=== PATIENT | male | born 1940 | race Caucasian/White ===

== ENCOUNTER → 2024-03-27 14:09 | Outpatient (REF) | payer MEDICARE, SELFPAY | LOC: DHVS 14:09 | PROVIDERS: ATTENDING PHYSICIAN Surgery Vascular Surgery | DX: I65.23 Occlusion and stenosis of bilateral carotid arteries (principal) | CPT/HCPCS: 93880 ==

== ENCOUNTER → 2024-10-15 13:53 | Outpatient (REF) | payer MEDICARE, SELFPAY | LOC: RAD 13:53 | PROVIDERS: ATTENDING PHYSICIAN Physician Assistant; FAMILY PHYSICIAN Family Medicine | DX: I65.23 Occlusion and stenosis of bilateral carotid arteries (principal) | CPT/HCPCS: 93880 ==

== ENCOUNTER 2024-11-01 01:12 | Inpatient (IN) | payer MEDICARE, SELFPAY ==
[2024-10-31 19:19] VITALS: BP 121/58
[2024-10-31 19:39] LABS: % Eosinophils 0.4 % (0-6); % Immature Granulocytes 0.3 % (0-0.5); % Lymphocytes 6.3 % (20.5-51.1); % Monocytes 9.9 % (1.7-9.3); % Neutrophils 83.1 % (42.2-75.2); Absolute Lymphocytes 0.5 10^3/uL (1.2-3.4); Absolute Monocytes 0.7 10^3/uL (0.1-0.6); Hematocrit 25.2 % (39.0-52.0); Hemoglobin 8.7 g/dL (13.0-18.0); Mean Corp Hgb Conc. 34.5 g/dL (33.0-37.0); Mean Corpuscular Hgb 29.7 pg (27.0-31.0); Nucleated Red Blood Cells % 0 % (-); Platelet Count 121 10^3/uL (130-400); Red Blood Cell Count 2.93 10^6/uL (4.70-6.10); Red Cell Dist. Width 16.6 % (11.5-14.5); White Blood Cell Count 7.2 10^3/uL (4.8-10.8)
[2024-10-31 19:47] LABS: Lactic Acid 1.7 mmol/L (0.7-2.0)
[2024-10-31 20:01] LABS: ALT (SGPT) 19 U/L (0-50); AST (SGOT) 29 U/L (17-59); Albumin 3.9 g/dl (3.5-5.0); Alkaline Phosphatase 84 U/L (38-126); Blood Urea Nitrogen 110 mg/dl (9-20); Calcium 8.7 mg/dl (8.4-10.2); Carbon Dioxide 19 mmol/L (22-30); Chloride 94 mmol/L (98-107); Glucose 226 mg/dl (70-99); Potassium 4.5 mmol/L (3.5-5.1); Sodium 128 mmol/L (135-145); Total Bilirubin 0.6 mg/dl (0.2-1.3); Total Protein 6.3 g/dl (6.3-8.2); eGFR 6.31
[2024-10-31 21:16] VITALS: BP 127/82
--- NOTE | 2024-10-31 21:26 | ED.GENMED ---
History of Present Illness
General
Chief Complaint: Male Genito-Urinary Symptoms
Source: patient and family
Exam Limitations: none
Time Seen by Provider: 10/31/24 21:13
History of Present Illness
History of Present Illness:
84yoM with a history of hypertension, hyperlipidemia, and prior TIAs presenting with his and daughter for evaluation of UTI symptoms. He initially started with dysuria about a week ago. He was seen at urgent care and started on an antibiotic,
patient is unsure of the name. He was again seen at urgent care and then by his PCP due to persistent symptoms. He was started on Bactrim 3 days ago by his PCP which she has been taking. Patient is here with new abdominal distention which she
noticed about 2 days ago. He is also having some fatigue and decreased appetite. He denies any fevers, chills, vomiting.
Past History
Past History
ED Past Medical History: CVA and HTN
ED Past Surgical History: None
Social History
Tobacco: Non-smoker
Alcohol: None
Drug: None
Personal:
Living: with family
Phy Exam
General Physical Exam
General Presentation: no apparent distress
General age: appears stated age
General Skin: warm and dry
General Habitus: normal and elderly
General Mental: alert
ENT Exam
ENT Exam: normocephalic
Cardiovascular Exam
Cardiovascular Exam: regular rate/rhythm
Pulmonary Exam
Pulmonary Exam: no respiratory distress
Gastrointestinal Exam
Gastrointestinal Exam: soft and other (Lower abdomen markedly distended with palpable bladder)
[place] Coma Scale
Eye Opening: Spontaneous
Verbal Response: Oriented
Motor Response: Obeys Commands
GCS Total Score: 15
Skin Exam
Skin Exam: normal color and warm/dry
Psychiatric Exam
Psychiatric Exam: normal mood/affect
Course
Orders/Labs/Results
Orders:
Orders
10/31/24 19:28
Comprehensive Metabolic Panel Urgent
10/31/24 19:29
Complete Blood Count/With Diff Urgent
10/31/24 19:30
Lactic Acid Urgent
10/31/24 21:24
Bladder Scan- Treatment ONCE
Ortiz Placement- Treatment ONCE
Reason for insertion: Acute Retention
0.9% Sodium Chloride 1000 ml [Nss] 1,000 ml IV BOLUS
10/31/24 21:25
CT Abd/pel Without Iv Or Oral Urgent
Comment:
Reason For Exam: Difficulty urinating, REZA
10/31/24 21:34
Lidocaine 2% [Lidocaine Uro-Jet 2%] 1 syringe .ROUTE .[employer] ONE
10/31/24 22:13
Urine Culture Reflexed from UA [Urinalysis Reflex To Culture] Urgent
Date Specimen was Collected: 10/31/24
Time Specimen was Collected: 19:22
Urine Microscopic Reflex Cult Urgent
10/31/24 23:44
CefTRIAXone [Rocephin] 1,000 mg IV NOW STA
10/31/24 23:46
Sterile Water [Sterile Water For Injection] 10 ml .ROUTE .[employer] ONE
10/31/24 23:56
Ortiz Catheter [Catheter- Indwelling] As Directed
Reason for insertion: Acute Retention
Size: 16
Comment: difficulrt ortiz do not remove hand irrigate prn clots
Assess insertion reason daily.Remove if no longer applicable: No
Discontinue Date/Time: 11/03/24 0600
May discontinue catheter when patient ambulating: No
Comment: KEEP ORTIZ
11/01/24 00:13
Acetaminophen [Tylenol] 650 mg PO NOW STA
11/01/24 00:52
Admit/Transfer Patient As Directed
Co-Sign Provider:
Level of Care: Inpatient admission
Assign to:: IMU- Intermediate Care
Physician / Group: Kirill
Diagnosis: Urinary Retention, REZA
Reason for Hospitalization: Urinary Retention, REZA
Expected length of stay greater than two midnights?: Yes
ELOS- Estimated Length of Stay in days: 4
I certify the patient meets the requirements for IP care: Yes
PRN Pain Medication Management As Directed
May give lesser potent ordered pain med per pt: Yes
preference::
Protocol:: Medication orders for pain may be administered in a
manner that supports deferring to patient preference
when the pt is:
- Requesting an ordered lesser potent pain medication.
Least to most potent pain medications are defined
as: acetaminophen < NSAID < tramadol < opioids
(morphine, oxycodone, hydromorphone).
- Requesting a lesser dose of the same medication IF
ORDERED.
- Requesting a less intrusive route of administration
if both routes are prescribed by the provider (PO <
IV).
11/01/24 00:54
Code Status As Directed
Resuscitation Status: Full Code
11/01/24 05:08
Basic Metabolic Panel IN AM
Glycohemoglobin (HgbA1c) IN AM
Magnesium IN AM
11/01/24 05:29
0.9% Sodium Chloride 1000 ml [Nss] 1,000 ml IV 80 mls/hr
Acetaminophen [Tylenol] 650 mg PO Q4HPRN PRN
Dextrose 50%-Water [Dextrose 50% Syringe] 12.5 grams IV [id number] PRN
Glucagon [GlucaGen] 1 mg IM PRN PRN
Polyethylene Glycol Powder [Miralax] 17 grams PO DAILY PRN
11/01/24 05:29
Consult Notification Routine
Specialty to Notify: Nephrology
Date consulting provider notified: 11/01/24
Time consulting provider notified: 07:30
Notified:: Provider
NEPHROLOGY CONSULT Routine
Consulting Provider: Yonatan Miller
Was physician already notified: No
Reason for consult: REZA, Urinary Retention
UROLOGY CONSULT Routine
Consulting Provider: Jhon Heller
Was physician already notified: Yes
Comment: Urinary Retention
Activity As Directed
Activity Level: Ambulate
With Assistance
Bedside Glucose Monitoring As Directed
Frequency: AC&HS
Additional Instructions:: Change to q6h if pt on TPN, tube feeding or not eating
EKG with chest pain [ECG as needed] As Directed
ECG as needed for:: Chest Pain
I/O [Intake/ Output] As Directed
Frequency: Per unit guidelines
Pneumatic Compression Sleeves As Directed
Type: Knee high
Records Request [Obtain Records] As Directed
Dates of Information to be Released: Most Recent
Type of Information Requested: Entire Record
Obtain Records from: [facility]
Vital Signs As Directed
Frequency: Per unit guidelines
Weight As Directed
Frequency: Daily
Oxygen Therapy [O2 Therapy] [RESP] Routine
Titrate/Wean O2 to maintain O2 sat greater than (%): 94
DX Deep Vein Thrombosis Video Routine
11/01/24 Breakfast
NPO
Allow oral meds: Yes
Allow clear liquids: Sips of Clears
11/01/24 07:30
Insulin Aspart Corrective Low [Novolog Flexpen-Low Resistance] See Protocol SC AC
11/01/24 08:00
Metoprolol [Lopressor] 50 mg PO BID
11/01/24 09:33
Complete Blood Count/No Diff IN AM
TSH Reflex To Free T4 Routine
11/01/24 22:00
Sennosides [Senokot] 17.2 mg PO HS
11/02/24 00:01
CefTRIAXone [Rocephin] 1,000 mg IV Q24H
Abnormal Lab Results
10/31/24 10/31/24 10/31/24
19:28 19:29 22:13
RBC 2.93 L 10^6/uL
(4.70-6.10)
Hgb 8.7 L g/dL
(13.0-18.0)
Hct 25.2 L %
(39.0-52.0)
RDW 16.6 H %
(11.5-14.5)
Plt Count 121 L 10^3/uL
(130-400)
MPV 11.0 H fL
(7.4-10.4)
Absolute Lymphs (auto) 0.5 L 10^3/uL
(1.2-3.4)
Absolute Monos (auto) 0.7 H 10^3/uL
(0.1-0.6)
Neutrophils % 83.1 H %
(42.2-75.2)
Lymphocytes % 6.3 L %
(20.5-51.1)
Monocytes % 9.9 H %
(1.7-9.3)
Sodium 128 L mmol/L
(135-145)
Chloride 94 L mmol/L
(98-107)
Carbon Dioxide 19 L mmol/L
(22-30)
BUN 110 H* mg/dl
(9-20)
Creatinine 7.8 H* mg/dL
(0.7-1.3)
Glucose 226 H mg/dl
(70-99)
Ur Occult Blood Reflex 1+ A
(Negative)
Urine Bilirubin 1+ A
(Negative)
Leukocyte Esterase Rfl Trace A
(Negative)
Urine RBC 16-20 A /HPF
(0-2)
Urine Bacteria (Reflex) Few A
(Negative)
Urine Yeast Few A
(Negative)
Urine Glucose 1+ A
(Negative)
10/31/24 19:29
10/31/24 19:28
Vital Signs
Initial and Last Documented VS:
Initial Vital Signs
Temp Pulse Resp BP Pulse Ox
98.7 F 72 18 121/58 98
10/31/24 19:19 10/31/24 19:19 10/31/24 19:19 10/31/24 19:19 10/31/24 19:19
Last Documented Vital Signs
Temp Pulse Resp BP Pulse Ox
97.6 F 63 12 118/48 97
11/01/24 07:05 11/01/24 06:00 11/01/24 06:00 11/01/24 06:00 11/01/24 07:55
MDM/Problems Addressed
Differential Diagnosis Includes:
84yoM here with difficulty urinating x 1 week. Has been treated at urgent care and by his PCP for a UTI. Currently on Bactrim. C/o new abdominal distention x 2 days. Family states he has been very fatigued. VSS. He is non-toxic appearing. Lower
abdomen is markedly distended on exam. Differential diagnosis includes but is not limited to: urinary retention, BPH, REZA, sepsis
Initial ED plan: Labs obtained in triage and creatinine is 7.8 which is new. Sodium 128. Bladder scan obtained during exam which shows about 1400cc of urine. Ortiz catheter ordered, IV fluid bolus, and CT abdomen without contrast.
*Critical Care Note
Total Time (30-74mins, 75-104mins- exclusive of procedures): Not Applicable
Update Note
Update Note:
I was called to bedside as nursing staff was unable to place Ortiz catheter. I also attempted catheter placement. Significant resistance noted about 1cm from meatus, presumably a urethral stricture. We were to traverse the stricture with an 8F and a
10F catheter but catheters were too short. We were able to do a straight cath with some urine drainage when pressure applied to the lower abdomen. Urology called for assistance.
Dr. Heller ultimately came to bedside and was able to dilate the stricture to place a 16F Ortiz. Gross hematuria noted and urology recommending no DVT prophylaxis/anticoagulants due to risk of clotting. Dose of IV Rocephin ordered for prophylaxis
in setting of manipulation although no overt evidence of infection on urinalysis. Patient admitted for further management.
ED Attending Note
-
Portions of this chart may have been created with voice recognition software.� Occasional wrong word or��sound alike� substitutions may have occurred due to the inherent limitations of voice recognition software.
Discharge Plan
Departure
Patient Disposition: Admit
Date of Disposition: 10/31/24
Time of Disposition: 23:47
Presentation/result/management discussed w/ accepting MD/DO: Hospitalist
Discharge Problem:
Acute renal failure, Acute urinary retention, Urethral stricture
Interventions
Interventions:
*Risk Screen - Suicide Last Done: 10/31/24 22:20
*General Assessment Last Done: 10/31/24 19:19
*Neglect/Abuse Screening Last Done: 10/31/24 22:20
ED- Fall Risk Assessment Last Done: 10/31/24 22:20
*ED COVID-19 Vaccine History Last Done: 10/31/24 22:16
*Nursing Disposition Last Done: 11/01/24 05:29
ED-Male Genitourinary Assessment Last Done: 10/31/24 22:20
Discharge Date and Time
Discharge Date/Time: 11/01/24 05:29
[2024-10-31 22:00] VITALS: BP 117/62
[2024-10-31 22:14] VITALS: BMI 25.0
--- NOTE | 2024-10-31 22:15 | EDRN ---
A Mckinley was attempted, unable to pass the catheter, myself and 2 other nurses attempted as well at the PA, a small 10 persian will pass however it is only a straight catheter, no balloon to leave in, slowly draining bladder and waiting on urology to
answer PA
[2024-10-31 22:21] LABS: Urine Albumin Trace (Neg - Trace); Urine Bilirubin 1+ (Negative); Urine Character Clear (Clear); Urine Color Amber; Urine Glucose 1+ (Negative); Urine Ketone Negative (Negative); Urine Leukocyte Trace (Negative); Urine Nitrite Negative (Negative); Urine Occult Blood 1+ (Negative); Urine Urobilinogen Negative (Neg - 1+)
[2024-10-31 22:32] LABS: Urine Squamous Cell 0-2 /LPF (Few); Urine Uric Acid Crystals Seen
[2024-10-31 22:33] LABS: Urine Bacteria Few (Negative); Urine Red Blood Cell 16-20 /HPF (0-2); Urine Yeast Few (Negative)
[2024-10-31 23:00] VITALS: BP 117/49
--- NOTE | 2024-10-31 23:47 | W.PN.URO.CBU ---
Today's Communication / Plan
-
no anticoagulants hand irrigate prn
Assessment / Plan
-
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
Diagnosis
-
Date of Service: October 31, 2024
-
Patient Diagnosis:ACUTE RENAL FAILURECREATININE 7.8 IN PT WITH DENSE URETHRAL STRICTURE AND 1.4 LITERS URINE IN BLADDER AND ON BACTRIM FOR POSSIBLE UTI DID NOT VOID WELLX 2 WEEKS
Post Op Day:
Subjective
-
CANNOT VOID CANNOT PLACE RODRIGUEZ
Objective
-
Vital Signs
Temp Pulse Resp BP Pulse Ox
98.2 F 68 11 117/49 95
10/31/24 22:14 10/31/24 23:00 10/31/24 23:00 10/31/24 23:00 10/31/24 23:00
Intake and Output
10/30/24 10/31/24 11/01/24
06:59 06:59 06:59
Output Total 1800 / 1800
Balance -1800 / -1800
Output:
Urine, Voided 1800 / 1800
Laboratory Results
10/31/24 19:29
10/31/24 19:28
Review of Systems
-
Constitutional: Fatigue
Abdomen/GI: Abdominal Pain
: Difficulty Voiding
Physical Exam
-
General - well developed, well nourished, no acute distress
Chest - clear bilaterally
Abdomen - soft, non-tender, positive bowel sounds, no CVAT, no incisional pain or distention
Genitalia - normal
Rectal - normal
Skin - warm & dry with no rash
Neuro - AOx3, no motor deficits
Extremities - no clubbing, no cyanosis, no edema
Care Review
Data Reviewed
Discussed with: Hospitalist, Nursing and Family
[2024-11-01] VITALS (17 sets, daily range): BP systolic 97–140; BP diastolic 39–68; BMI 24.0
[2024-11-01] MEDS: ROCEPHIN 1000 MG IV (00:06)
[2024-11-01] MEDS: NSS 1000 IV ×3 (00:07→19:58)
[2024-11-01] MEDS: TYLENOL 650 MG PO (00:20)
--- NOTE | 2024-11-01 00:56 | HPS.HSE ---
Family Physician
-
Family Physician: Richie Coronado
Chief Complaint
-
Inability to urinate
History of Present Illness
Patient is an 84y M with PMH significant for hypertension, remote CVA and h/o urinary retention who presents to ED complaining of inability to urinate. Patient states that he developed symptoms bout 2 weeks ago of inability to urinate with
significant burning when he strained to urinate. He was seen at Urgent Care one week ago and started on Bactrim at that time for presumed UTI. He was seen by his PCP and the course of Bactrim was extended as his symptoms had not improved.
Patient estimates that it has been about 2 weeks since he has had an actual episode of urination.
He also notes that he has not moved his bowels in quite some time - he cannot say when his last BM was.
This evening, patient presented to he ED with increasing abdominal distention and discomfort and continued inability to urinate.
Mckinley could not be easily placed in the ED and patient was seen by Urology for difficult Mckinley placement. He currently feels improved from initial arrival - though he continues to note some abdominal distention and discomfort.
Patient had a similar episode in April 2023. He was seen in the ED here and had a Mckinley placed at that time and was discharged.
He states that he developed bloody urine 1-2 days later and was admitted to [facility] 'for a while'.
He ultimately was able to have this Mckinley removed and he states that he has been able to urinate well with no catheter, etc for > 1 year.
Medical History
Past Medical History
Past Medical History: Reports Other
Additional Past Medical History:
ASCVD (Prior CVAs, Carotid Stenosis)
Hypertension
Myelodysplastic Syndrome
Thoracic Aortic Aneurysm
Past Surgical History: Reports Other
Additional Past Surgical History:
Vasectomy
Social History
Tobacco: Vaping ( Current every day use. Previous cigarette smoker.)
Alcohol: Occasional
Drug: None
Family History
Family History: Not pertinent
Allergies / Home Medications
Allergies reflects when Allergies were last updated in [employer].
Home Medications with original date entered in [employer]
Allergy/Medication List:
Allergies
Allergy/AdvReac Type Severity Reaction Status Date / Time
NKA - No Known Allergies Allergy Unknown Uncoded 10/31/24 19:19
Home Medications
amlodipine 5 mg tablet 5 mg PO DAILY 04/24/23
aspirin 81 mg chewable tablet 81 mg PO DAILY 04/24/23
enalapril maleate 10 mg tablet 10 mg PO DAILY 04/24/23
fexofenadine 180 mg tablet 180 mg PO BID 04/24/23
metoprolol tartrate 50 mg tablet 50 mg PO BID 04/24/23
simvastatin 20 mg tablet 20 mg PO HS 04/24/23
Review of Systems
-
History Source: Patient
A 12 point ROS was completed and negative except as noted: Yes
Constitutional: Denies Fever or Chills
Respiratory: Denies Cough or Trouble Breathing
Cardiac: Denies Chest Pain or Palpitations
Abdomen/GI: Reports Abdominal Pain and Constipated; Denies Nausea, Vomiting or Diarrhea
: Reports Dysuria and Difficulty Voiding; Denies Frequency, Flank Pain or Incontinence
Musculoskeletal: Denies Joint Pain or Edema
Neurological: Denies Dizzy or Headache
Psych: Denies Depression or Anxiety
Physical Exam
Vital Signs
Vital Signs
Temp Pulse Resp BP Pulse Ox
98.2 F 76 24 129/46 97
10/31/24 22:14 10/31/24 23:50 10/31/24 23:50 11/01/24 00:06 11/01/24 00:30
Physical Exam
General: Other (84y M in no acute distress.)
HEENT: Moist mucous membranes, PERRLA and Other (Poor dentition.)
Respiratory: Clear; No Wheezes, Rales or Rhonchi
Cardiac: S1/S2 and Regular Rhythm
GI: Other (Suprapubic fullness and mild tenderness. No rebound / guarding. Pos bowel sounds.)
Genito-urinary: Other (Mckinley in place draining grossly bloody urine.)
Musculoskeletal: No Clubbing, No Cyanosis and Other (Trace - 1+ pitting edema b/l feet.)
Neuro: AO x 3
Laboratory Results
-
10/31/24 19:29
10/31/24 19:28
Laboratory Results
Lactic Acid 1.7 mmol/L (0.7-2.0) 10/31/24 19:30
Total Bilirubin 0.6 mg/dl (0.2-1.3) 10/31/24 19:28
AST 29 U/L (17-59) 10/31/24 19:28
ALT 19 U/L (0-50) 10/31/24 19:28
Alkaline Phosphatase 84 U/L (38-126) 10/31/24 19:28
Impression/Plan
-
A/P: Patient is an 84y M with PMH significant for hypertension, prior CVA(s) and BPH who presents to ED complaining of difficulty urinating.
Urinary Retention
Urethral Stricture
- Admit for further evaluation and treatment.
- Mckinley drained of 1400cc in the ED by Urology.
- Urethra dilated and small Mckinley placed - currently draining bloody urine.
- Maintain Mckinley - flush as needed to clear.
- Urology input appreciated.
REZA
Anion Gap Metabolic Acidosis
- Likely multifactorial and secondary to post-renal / obstructive process and interstitial nephritis / med effect.
- Maintain Mckinley as noted above.
- IVF support.
- Hold Bactrim / other nephrotoxic agents.
- Nephrology evaluation for additional recommendations.
- Follow SCr (7.8) for improvement to baseline (0.7).
MDS
Normocytic Anemia
Thrombocytopenia
- Stable. Cell counts fair at present.
- Follow H&H and transfuse if needed.
- Avoid anticoagulants, antiplatelets, etc acutely.
- Follow platelet count and transfuse if significant decline / continued bleeding.
ASCVD
- Stable. History of prior CVAs with no new neurologic deficits.
- Holding ASA acutely as noted above.
- Follow for any new symptoms / complaints.
DM-II
- Stable. Hold oral agents acutely (repaglinide pre-meals).
- Follow glucose and cover with SSI if needed.
- Update A1C.
DVT Prophylaxis: SCDs
Code Status: Full
--- NOTE | 2024-11-01 02:30 | EDRN ---
Patient is resting comfortably at this time, will continue to monitor
--- NOTE | 2024-11-01 03:00 | EDRN ---
Emptied rodriguez bag out, dark red bloody urine noted, informed Dr. cardoso about amount of blood in rodriguez
--- NOTE | 2024-11-01 05:07 | EDRN ---
Patients gown saturated in blood around penis, patient had a large clot formed there, patient cleaned up and new gown, informed Dr. Roy about he amount of blood coming out, he said I can send morning labs now to check h&H
[2024-11-01 05:50] LABS: Blood Urea Nitrogen 87 mg/dl (9-20); Calcium 8.1 mg/dl (8.4-10.2); Carbon Dioxide 19 mmol/L (22-30); Chloride 102 mmol/L (98-107); Estimated Creatinine Clearance 8 ml/min; Glucose 105 mg/dl (70-99); Magnesium 2.5 mg/dl (1.6-2.3); Potassium 3.7 mmol/L (3.5-5.1); Sodium 132 mmol/L (135-145); eGFR 10.51
[2024-11-01] MEDS: NOVOLOG FLEXPEN-LOW RESISTANCE SC ×3 (08:40→17:59)
[2024-11-01] MEDS: LOPRESSOR 50 MG PO ×2 (08:41→19:58)
--- NOTE | 2024-11-01 09:08 | W.PN.HOSP.TC ---
Today's Communication/Plan
-
await cultures and renal/bladder US
follow H&H and creat
Assessment / Plan
Assessment / Plan
pt is an 84 year old male
Urinary Retention due to Urethral Stricture--has not urinated for 2 weeks?--apprec urology, urethra dilated and rodriguez placed and 1400mls removed
REZA with Anion Gap Metabolic Acidosis--due to post renal/obstructive process with urinary retention and stricture--rodriguez placed--creat improving to 5.1 from 7.8 (baseline 0.8)--getting US today--cont rodriguez--await cultures--hold Bactrim--apprec
renal--cont IVF
MDS/Normocytic Anemia/Thrombocytopenia--monitor H&H with urinary bleeding--transfuse as needed--void anticoagulants, antiplatelets, etc acutely.
ASCVD-- Stable. History of prior CVAs with no new neurologic deficits - Holding ASA acutely as noted above.
DM-II-- Stable. Hold oral agents acutely (repaglinide pre-meals)--not on any per med rec?- Update A1C.
DVT Prophylaxis: SCDs
Code Status: Full
Anticipated Discharge: > 48 hours
Subjective/Interval History
-
Date of Service: November 01, 2024
pt without c/o--bloody urine ongoing after rodriguez placement--no pain
Objective Data
-
Labs:
Laboratory Results
11/01/24 11/01/24
05:08 06:00
WBC Pending
Hgb Pending
Hct Pending
Plt Count Pending
Sodium 132 L
Potassium 3.7
Chloride 102
Carbon Dioxide 19 L
BUN 87 H
Creatinine 5.1 H*
Glucose 105 H
Calcium 8.1 L
Vital Signs:
max temp for 24 hours
10/31/24
19:19
Temp 98.7 F
Vital Signs
Temp Pulse Resp BP Pulse Ox
97.6 F 63 12 118/48 97
11/01/24 07:05 11/01/24 06:00 11/01/24 06:00 11/01/24 06:00 11/01/24 06:00
I&O
10/31/24 11/01/24 11/02/24
06:59 06:59 06:59
Output Total 3350 / 3350 700 / 700
Balance -3350 / -3350 -700 / -700
Review of Systems
-
All other systems: Reviewed and negative
Physical Exam
-
General: Well Developed, Well Nourished and No Apparent Distress
HEENT: Normocephalic and Atraumatic
Respiratory: Clear to Auscultation; Negative Wheezes or Rhonchi
Cardiac: Regular Rhythm and S1/S2; Negative Murmur
GI: Soft, Nontender, Nondistended and Normal Bowel Sounds
Genito-urinary: Bloody Urine and Rodriguez
Musculoskeletal: No Clubbing, No Cyanosis and No Edema
Skin: Warm and Dry
Neuro: Awake and Alert
Psych: Calm
--- NOTE | 2024-11-01 09:48 | W.PN.URO.CBU ---
Today's Communication / Plan
-
MAGGIE GO HOMW WITH RODRIGUEZ STAERT FINASTERIDE
Assessment / Plan
-
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
Diagnosis
-
Date of Service: November 01, 2024
-
Patient Diagnosis:
Post Op Day:
Patient Diagnosis:ACUTE RENAL FAILURECREATININE 7.8 IN PT WITH DENSE URETHRAL STRICTURE AND 1.4 LITERS URINE IN BLADDER AND ON BACTRIM FOR POSSIBLE UTI DID NOT VOID WELLX 2 WEEKS
Post Op Day:
Subjective
-
FEELING BETTER
Objective
-
Vital Signs
Temp Pulse Resp BP Pulse Ox
97.6 F 63 12 118/48 97
11/01/24 07:05 11/01/24 06:00 11/01/24 06:00 11/01/24 06:00 11/01/24 06:00
Intake and Output
10/31/24 11/01/24 11/02/24
06:59 06:59 06:59
Output Total 3350 / 3350 700 / 700
Balance -3350 / -3350 -700 / -700
Output:
Urine, Rodriguez 1000 / 1000 700 / 700
Urine, Voided 2350 / 2350
Laboratory Results
11/01/24 05:08
Review of Systems
-
: Difficulty Voiding and Bleeding
Physical Exam
-
General - well developed, well nourished, no acute distress
Chest - clear bilaterally
Abdomen - soft, non-tender, positive bowel sounds, no CVAT, no incisional pain or distention
Genitalia - normal
Rectal - normal
Skin - warm & dry with no rash
Neuro - AOx3, no motor deficits
Extremities - no clubbing, no cyanosis, no edema
Incision - clean, dry
Dressing - clean, dry, intact
[2024-11-01 10:13] LABS: Hematocrit 24.3 % (39.0-52.0); Hemoglobin 7.9 g/dL (13.0-18.0); Mean Corp Hgb Conc. 32.5 g/dL (33.0-37.0); Mean Corpuscular Hgb 28.7 pg (27.0-31.0); Mean Corpuscular Volume 88.4 fL (80.0-94.0); Platelet Count 101 10^3/uL (130-400); Red Blood Cell Count 2.75 10^6/uL (4.70-6.10); Red Cell Dist. Width 16.6 % (11.5-14.5); White Blood Cell Count 4.7 10^3/uL (4.8-10.8)
--- NOTE | 2024-11-01 10:23 | W.CON.NEPH ---
Consultation
-
Date/Time Consultation Requested: 11/01/2024 7 AM
Date/Time Consultation Performed: 11/01/2024 10 AM
Requesting Provider: Dr. Roy
Performing Provider: Dr. Aranda
Reason for Consultation: REZA
Medical History
-
Chief Complaint: Urinary retention
History of Present Illness:
This is an 84-year-old gentleman who has hypertension controlled with a multidrug regimen, hyperlipidemia controlled with statin therapy who came to the emergency room overnight with inability to urinate. He states that he has been probably about 2
weeks since he was able to actually urinate. He says that he gone to urgent care 1 week ago and they had felt that he had a urinary tract infection and given him Bactrim. He also continued on enalapril. He says that he has been compliant with
medications. At the time of the presentation to the emergency room Mckinley catheter was difficulty to place and urology had placed it with 1.4 L urine output. Blood work had shown acute kidney injury with a creatinine of 7.8 and a BUN of 110.
Potassium was only 4.5 but he did have metabolic acidosis and hyponatremia. Currently he is not no distress with a Mckinley catheter in place with gross hematuria.
Past Medical History
Carotid stenosis, stroke, hypertension, myelodysplastic syndrome, thoracic aortic aneurysm, vasectomy, hyperlipidemia
Social History
Tobacco: Former Smoker and Vaping
Alcohol: Occasional
Family History
No CKD
Family History: Not Pertinent
Allergies / Home Medications
Allergy/AdvReac Type Severity Reaction Status Date / Time
NKA - No Known Allergies Allergy Unknown Uncoded 10/31/24 19:19
�Medication �Instructions �Recorded �Confirmed �Type
amlodipine 5 mg tablet 5 mg PO DAILY 04/24/23 11/01/24 History
aspirin 81 mg chewable tablet 81 mg PO DAILY 04/24/23 11/01/24 History
enalapril maleate 10 mg tablet 10 mg PO DAILY 04/24/23 11/01/24 History
fexofenadine 180 mg tablet 180 mg PO BID 04/24/23 11/01/24 History
metoprolol tartrate 50 mg tablet 50 mg PO BID 04/24/23 11/01/24 History
simvastatin 20 mg tablet 20 mg PO HS 04/24/23 11/01/24 History
Review of Systems
-
No chest pain or shortness of breath. He has not had a bowel movement. The remainder of the complete review of systems was negative except for that listed above
Physical Exam
Vital Signs
Vital Signs
Temp Pulse Resp BP Pulse Ox
97.6 F 63 12 118/48 97
11/01/24 07:05 11/01/24 06:00 11/01/24 06:00 11/01/24 06:00 11/01/24 06:00
Lab Results
WBC 4.7 10^3/uL (4.8-10.8) L 11/01/24 09:33
RBC 2.75 10^6/uL (4.70-6.10) L 11/01/24 09:33
Hgb 7.9 g/dL (13.0-18.0) L 11/01/24 09:33
Hct 24.3 % (39.0-52.0) L 11/01/24 09:33
Plt Count 101 10^3/uL (130-400) L 11/01/24 09:33
Sodium 132 mmol/L (135-145) L 11/01/24 05:08
Potassium 3.7 mmol/L (3.5-5.1) 11/01/24 05:08
Chloride 102 mmol/L (98-107) 11/01/24 05:08
Carbon Dioxide 19 mmol/L (22-30) L 11/01/24 05:08
BUN 87 mg/dl (9-20) H 11/01/24 05:08
Creatinine 5.1 mg/dL (0.7-1.3) H* 11/01/24 05:08
eGFR 10.51 11/01/24 05:08
Glucose 105 mg/dl (70-99) H 11/01/24 05:08
Calcium 8.1 mg/dl (8.4-10.2) L 11/01/24 05:08
Albumin 3.9 g/dl (3.5-5.0) 10/31/24 19:28
Laboratory Tests
04/27/23
09:29
Sodium 140
Potassium 3.7
Carbon Dioxide 26
BUN [address] abdomen and pelvis without IV contrast on 10/31/2024
IMPRESSION:
1). The prostate is markedly enlarged measuring 8 cm diameter
2). There is moderate bilateral hydronephrosis and hydroureter presumably secondary to chronic partial bladder outlet obstruction
3). There are bilateral renal cysts measuring up to 4 to centimeters.
4). There is 7 mm nonobstructing left-sided renal calculus
5). There are bilateral inguinal hernias which do not contain bowel.
6). There is 4.1 cm fusiform infrarenal abdominal aortic aneurysm.
7). There is multilevel lumbar degenerative disc disease
Physical Exam
Patient is awake alert oriented and in no distress. Mood and affect were pleasant, insight and judgment were good. Pupils are equal round and reactive to light, extraocular movements are intact, sclera were anicteric. Hearing was normal, ears and
nose are intact. Oropharynx was clear. Neck was supple with trachea midline and no thyromegaly. Heart was regular rate and rhythm without rubs. Lower extremities without edema. Lungs were clear to auscultation bilaterally and with normal
excursion. Abdomen was soft, nontender, with normal active bowel sounds, and no hepatosplenomegaly. Skin was without rash and with normal turgor.
Data Reviewed
-
Radiology: Report Reviewed by me (Will)
CT Scan: Report Reviewed by me
Labs: Labs Reviewed by me
Old Records: Reviewed
Assessment/Plan
-
Assessment
Urinary retention
obstipation
REZA
Azotemia
Metabolic acidosis
Hyponatremia
Anemia/MDS
Plan
Holding antibiotics, MARC inhibitor
Follow BMP
Mckinley per urology
Follow hemoglobin, transfuse as needed
Electrolytes should normalize without IV fluids
[2024-11-01 11:28] LABS: Glycohemoglobin (HgbA1c) 7.8 % (4.0-5.6)
--- NOTE | 2024-11-01 12:30 | CM ---
Patient seen bedside.
patient presents with urinary retention.
patient lives with spouse in a 3 story home with 2 steps to enter.
patient independent prior to admission withour assistive devices.
Patient drives.
Patient with no hx VN.
Spouse will transport home.
PCP: Dr. Coronado
Pharmacy: [facility].
Plan: home, possible VN vs no needs.
[2024-11-01 13:28] LABS: Glucose - Point of Care 90 mg/dl (70-99)
--- NOTE | 2024-11-01 17:18 | PTCARENOTE ---
Pt received in bed @ 0700. AAOx3. Pt denying pain or discomfort. SaO2 97% on room air. 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 Mckinley catheter draining maroon with small clots. Hand irrigated ml + output ml. Pt advanced to low cholesterol diet. Ate dinner
before notifying staff for accucheck. Education provided on importance blood sugar management.
[2024-11-01 21:24] LABS: Glucose - Point of Care 124 mg/dl (70-99)
[2024-11-01] MEDS: SENOKOT 17.2 MG PO (23:00)
--- NOTE | 2024-11-01 23:30 | PTCARENOTE ---
pt transferred to [facility]-2 in stable condition with belongings report given 4th floor JAMEL Treadwell.
--- NOTE | 2024-11-01 23:45 | PTCARENOTE ---
Patient admitted from IMU. Patient with rodriguez in place, draining bloody urine. Patient AAO x3, on RA, vital stable. Patient in no acute distress. Patient oriented to room and call farias within reach.
[2024-11-02] VITALS (11 sets, daily range): BP systolic 129–153; BP diastolic 54–68
[2024-11-02] MEDS: STERILE WATER FOR INJECTION 10 ML IV (00:07)
[2024-11-02] MEDS: ROCEPHIN 1000 MG IV (00:07)
[2024-11-02] MEDS: NSS 1000 IV ×2 (06:07→13:56)
[2024-11-02 07:09] LABS: Glucose - Point of Care 162 mg/dl (70-99)
[2024-11-02 07:24] LABS: ALT (SGPT) 16 U/L (0-50); AST (SGOT) 25 U/L (17-59); Albumin 2.8 g/dl (3.5-5.0); Alkaline Phosphatase 51 U/L (38-126); Blood Urea Nitrogen 35 mg/dl (9-20); Calcium 7.9 mg/dl (8.4-10.2); Carbon Dioxide 17 mmol/L (22-30); Chloride 112 mmol/L (98-107); Estimated Creatinine Clearance 29 ml/min; Glucose 125 mg/dl (70-99); Potassium 4.1 mmol/L (3.5-5.1); Sodium 139 mmol/L (135-145); Total Bilirubin 0.6 mg/dl (0.2-1.3); Total Protein 5.1 g/dl (6.3-8.2); eGFR 49.56
[2024-11-02] MEDS: PROSCAR 5 MG PO (08:27)
[2024-11-02] MEDS: LOPRESSOR 50 MG PO ×2 (08:28→20:33)
[2024-11-02 08:33] LABS: Hematocrit 19.9 % (39.0-52.0); Hemoglobin 6.7 g/dL (13.0-18.0); Mean Corp Hgb Conc. 33.7 g/dL (33.0-37.0); Mean Corpuscular Hgb 29.5 pg (27.0-31.0); Mean Corpuscular Volume 87.7 fL (80.0-94.0); Mean Platelet Volume 11.3 fL (7.4-10.4); Platelet Count 104 10^3/uL (130-400); Red Blood Cell Count 2.27 10^6/uL (4.70-6.10); Red Cell Dist. Width 16.9 % (11.5-14.5); White Blood Cell Count 2.6 10^3/uL (4.8-10.8)
--- NOTE | 2024-11-02 08:45 | W.PN.URO.CBU ---
Today's Communication / Plan
-
Maintain Mckinley catheter to drainage - some mild degree of pawan-catheter bloody drainage expected given urethral dilation
Hold ASA
IV tranexamic acid x1 today
Trend H/H and Cr
PRBCs x2u today per Hospitalist
Initial hematuria suspected from rapid decompression of bladder (1.4L drained initially) and large volume BPH
Suspect urine to slowly clear w/ catheter drainage and time
Assessment / Plan
-
ARF - improving w/ catheter decompression
Acute urinary retention - s/p dilation of stricture and catheter placement
Hematuria
Acute blood anemia from hematuria
Dense urethral stricture - s/p dilation of stricture and catheter placement
Large volume BPH
10/31: s/p urethral dilation and complicated catheter placement
Urine color dark and burgundy-colored indicative of old bleeding and clot lysis.
Mckinley catheter draining well w/o clot obstruction.
ASA held tentatively.
Cr w/ rapid downtrend after catheter placement.
Diagnosis
-
Date of Service: November 02, 2024
-
Patient Diagnosis:
ARF
Acute urinary retention
Hematuria
Dense urethral stricture
Large volume BPH
10/31: s/p urethral dilation and complicated catheter placement
Subjective
-
Feels urgency to have BM.
Minimal bloody drainage around catheter.
Burgundy-colored urine in tubing w/o clots.
Objective
-
Vital Signs
Temp Pulse Resp BP Pulse Ox
98.8 F 69 16 129/57 100
11/02/24 11:05 11/02/24 11:05 11/02/24 11:05 11/02/24 11:05 11/02/24 11:05
Intake and Output
11/01/24 11/02/24 11/03/24
06:59 06:59 06:59
Output Total 3350 / 3350 3050 / 3050
Balance -3350 / -3350 -3050 / -3050
Output:
Urine, Mckinley 1000 / 1000 3050 / 3050
Urine, Voided 2350 / 2350
Laboratory Results
11/02/24 06:04
11/02/24 06:04
Physical Exam
-
General - well developed, well nourished, no acute distress
Abdomen - soft, non-tender, non-distended
- 16Fr Mckinley catheter w/ burgundy urine in tubing, no clots
Skin - warm & dry with no rash
Extremities - no clubbing, no cyanosis, no edema
Care Review
Data Reviewed
Discussed with: Hospitalist and Nursing
CT Scan: Report Pers Reviewed and Image Pers Reviewed
[2024-11-02] MEDS: NOVOLOG FLEXPEN-LOW RESISTANCE 1 UNITS SC (09:42)
--- NOTE | 2024-11-02 11:00 | W.PN.NEPH.PH ---
Today's Communication / Plan
-
continue IVF
Assessment/Plan
-
Assessment
Urinary retention
obstipation
REZA
Azotemia
Metabolic acidosis
Hyponatremia
Anemia/MDS
Plan
Holding antibiotics, MARC inhibitor
Follow BMP
Rodriguez per urology
Follow hemoglobin, transfuse as needed
change to IVF wth bicarb after current bag completes
-
-
Date of Service: November 02, 2024
CC / HPI / ROS
-
Chief Complaint:
REZA
History of Present Illness:
REZA/Cr down to 1.4 with rodriguez
acidosis persists
worsening pancytopenia, Hgb 6.7, WBC 2.4
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
Review of Systems:
no CP/SOB
Labs
-
Labs:
WBC 2.6 10^3/uL (4.8-10.8) L 11/02/24 06:04
RBC 2.27 10^6/uL (4.70-6.10) L 11/02/24 06:04
Hgb 6.7 g/dL (13.0-18.0) L* 11/02/24 06:04
Hct 19.9 % (39.0-52.0) L* 11/02/24 06:04
Plt Count 104 10^3/uL (130-400) L 11/02/24 06:04
Sodium 139 mmol/L (135-145) 11/02/24 06:04
Potassium 4.1 mmol/L (3.5-5.1) 11/02/24 06:04
Chloride 112 mmol/L (98-107) H 11/02/24 06:04
Carbon Dioxide 17 mmol/L (22-30) L 11/02/24 06:04
BUN 35 mg/dl (9-20) H 11/02/24 06:04
Creatinine 1.4 mg/dL (0.7-1.3) H 11/02/24 06:04
eGFR 49.56 11/02/24 06:04
Glucose 125 mg/dl (70-99) H 11/02/24 06:04
Calcium 7.9 mg/dl (8.4-10.2) L 11/02/24 06:04
Albumin 2.8 g/dl (3.5-5.0) L 11/02/24 06:04
Physical Exam
-
Vital Signs:
Vital Signs
Temp Pulse Resp BP Pulse Ox
98.6 F 78 16 153/59 97
11/02/24 07:05 11/02/24 07:05 11/02/24 07:05 11/02/24 07:05 11/02/24 07:05
Cardiovascular:: Regular rate and rhythm
Respiratory:: Bilateral: CTA
Lung Excursion:: Normal
Abdomen:: Nontender and Soft
Bowel Sounds:: Normal
Extremity Edema:: None: Bilateral:
--- NOTE | 2024-11-02 11:08 | W.PN.HOSP.TC ---
Today's Communication/Plan
-
transfuse 2 units pRBC
PT/OT
IVF per renal
Assessment / Plan
Assessment / Plan
pt is an 84 year old male
Urinary Retention due to Urethral Stricture--had not urinated for 2 weeks?--apprec urology, urethra dilated and rodriguez placed and 1400mls removed--now with significant hematuria--need to transfuse 2 units pRBC--on ceftriaxone but no urine culture
ordered....will be unreliable now that pt has been on ABX
REZA with Anion Gap Metabolic Acidosis--due to post renal/obstructive process with urinary retention and stricture--rodriguez placed--creat improving 7.8, 5.1, 1.4 (baseline 0.8)--cont rodriguez---hold Bactrim--apprec renal--cont IVF as per renal--apprec
input
MDS/Normocytic Anemia/Thrombocytopenia--now with acute blood loss anemia from hematuria on anemia of chronic disease---transfuse 2 units pRBC--avoid anticoagulants, antiplatelets, etc acutely.
ASCVD-- Stable. History of prior CVAs with no new neurologic deficits - Holding ASA acutely as noted above.
DM-II-- Stable (repaglinide pre-meals)--not on any per med rec?- Update A1C.
DVT Prophylaxis: SCDs
Code Status: Full
Anticipated Discharge: > 48 hours
Subjective/Interval History
-
Date of Service: November 02, 2024
pt still with hematuria--no pain
Objective Data
-
Labs:
Laboratory Results
11/02/24
06:04
WBC 2.6 L
Hgb 6.7 L*
Hct 19.9 L*
Plt Count 104 L
Sodium 139
Potassium 4.1
Chloride 112 H
Carbon Dioxide 17 L
BUN 35 H
Creatinine 1.4 H
Glucose 125 H
Calcium 7.9 L
Total Bilirubin 0.6
AST 25
ALT 16
Alkaline Phosphatase 51
Vital Signs:
max temp for 24 hours
11/01/24
19:26
Temp 99.5 F
Vital Signs
Temp Pulse Resp BP Pulse Ox
98.6 F 78 16 153/59 97
11/02/24 07:05 11/02/24 07:05 11/02/24 07:05 11/02/24 07:05 11/02/24 07:05
I&O
11/01/24 11/02/24 11/03/24
06:59 06:59 06:59
Output Total 3350 / 3350 3050 / 3050
Balance -3350 / -3350 -3050 / -3050
Review of Systems
-
All other systems: Reviewed and negative
Physical Exam
-
General: Well Developed, Well Nourished and No Apparent Distress
HEENT: Normocephalic and Atraumatic; Negative Oxygen
Respiratory: Clear to Auscultation; Negative Wheezes or Rhonchi
Cardiac: Regular Rhythm and S1/S2; Negative Murmur
GI: Soft, Nontender, Nondistended and Normal Bowel Sounds
Genito-urinary: Bloody Urine and Rodriguez
Musculoskeletal: No Clubbing, No Cyanosis and No Edema
Neuro: Awake and Alert
[2024-11-02 12:06] LABS: Glucose - Point of Care 234 mg/dl (70-99)
[2024-11-02] MEDS: NOVOLOG FLEXPEN-LOW RESISTANCE 2 UNITS SC ×2 (12:58→17:25)
[2024-11-02] MEDS: TRANEXAMIC ACID 110 MG IV (13:13)
[2024-11-02 16:41] LABS: Glucose - Point of Care 240 mg/dl (70-99)
[2024-11-02] MEDS: SENOKOT 17.2 MG PO (20:33)
[2024-11-02 21:09] LABS: Glucose - Point of Care 232 mg/dl (70-99)
[2024-11-03] VITALS (10 sets, daily range): BP systolic 129–160; BP diastolic 59–77; PULSE 71; O2SAT 97; BMI 23.5
[2024-11-03] MEDS: STERILE WATER FOR INJECTION 10 ML IV ×2 (00:19→23:20)
[2024-11-03] MEDS: ROCEPHIN 1000 MG IV ×2 (00:19→23:20)
[2024-11-03] MEDS: SODIUM BICARBONATE 1150 MEQ IV (02:12)
[2024-11-03 07:21] LABS: Hematocrit 25.7 % (39.0-52.0); Hemoglobin 8.7 g/dL (13.0-18.0); Mean Corp Hgb Conc. 33.9 g/dL (33.0-37.0); Mean Corpuscular Hgb 30.1 pg (27.0-31.0); Mean Corpuscular Volume 88.9 fL (80.0-94.0); Mean Platelet Volume 10.1 fL (7.4-10.4); Platelet Count 108 10^3/uL (130-400); Red Blood Cell Count 2.89 10^6/uL (4.70-6.10); Red Cell Dist. Width 15.3 % (11.5-14.5); White Blood Cell Count 3.1 10^3/uL (4.8-10.8)
[2024-11-03] MEDS: LOPRESSOR 50 MG PO ×2 (07:40→21:19)
[2024-11-03] MEDS: PROSCAR 5 MG PO (07:41)
[2024-11-03 07:43] LABS: Blood Urea Nitrogen 13 mg/dl (9-20); Calcium 7.8 mg/dl (8.4-10.2); Carbon Dioxide 23 mmol/L (22-30); Chloride 108 mmol/L (98-107); Estimated Creatinine Clearance 51 ml/min; Glucose 156 mg/dl (70-99); Magnesium 1.3 mg/dl (1.6-2.3); Potassium 3.6 mmol/L (3.5-5.1); Sodium 138 mmol/L (135-145); eGFR > 60.00
[2024-11-03 08:02] LABS: Glucose - Point of Care 158 mg/dl (70-99)
[2024-11-03] MEDS: NOVOLOG FLEXPEN-LOW RESISTANCE 1 UNITS SC (08:42)
--- NOTE | 2024-11-03 09:22 | W.PN.URO.CBU ---
Today's Communication / Plan
-
Maintain Mckinley catheter
Continue finasteride
Hold ASA
Trend H/H
Outpatient voiding trial and F/U with Dr. Sherwood
Assessment / Plan
-
ARF - resolved
Acute urinary retention - s/p dilation of stricture and catheter placement
Hematuria - improving
Acute blood loss anemia (from urethral dilation, BPH, and decompression hematuria)
Dense urethral stricture - s/p dilation of stricture and catheter placement
Large volume BPH
10/31: s/p urethral dilation and complicated catheter placement
Urine now aqueous and light punch w/o clots - indicative of old bleeding and clot lysis.
Mckinley catheter draining well w/o clot obstruction.
ASA held.
H/H stable s/p 2u.
Cr normalized.
Diagnosis
-
Date of Service: November 03, 2024
-
Patient Diagnosis:
ARF
Acute urinary retention
Hematuria
Dense urethral stricture
Large volume BPH
10/31: s/p urethral dilation and complicated catheter placement
Subjective
-
Feels well.
s/p 2u PRBCs 11/02.
Urine light punch and aqueous in tubing - no clots.
Resolution of leakage/bleeding around catheter (improved from yesterday).
Objective
-
Vital Signs
Temp Pulse Resp BP Pulse Ox
98.4 F 68 18 130/64 98
11/03/24 07:22 11/03/24 07:22 11/03/24 07:22 11/03/24 07:22 11/03/24 07:22
Intake and Output
11/02/24 11/03/24 11/04/24
06:59 06:59 06:59
Intake Total 620 / 620
Output Total 3050 / 3050 2130 / 2130
Balance -3050 / -3050 -1510 / -1510
Intake:
Oral fluids 120 / 120
Blood Product Amount Infused ( 500 / 500
mL)
Packed Rbc Leukoreduced Unit 500 / 500
[id number]
Output:
Urine, Mckinley 3049
Laboratory Results
11/03/24 06:53
11/03/24 06:53
Physical Exam
-
General - well developed, well nourished, no acute distress
Abdomen - soft, non-tender, suprapubic area non-distended
- light punch-colored urine w/o clots in tubing
Extremities - no clubbing, no cyanosis, no edema
Care Review
Data Reviewed
Discussed with: Hospitalist and Nursing
CT Scan: Report Pers Reviewed and Image Pers Reviewed
Total Time Spent with Patient (in minutes): 25
--- NOTE | 2024-11-03 10:19 | W.PN.HOSP.TC ---
Today's Communication/Plan
-
hopeful d/c tomorrow
Assessment / Plan
Assessment / Plan
pt is an 84 year old male
Urinary Retention due to Urethral Stricture--had not urinated for 2 weeks--apprec urology, urethra dilated and rodriguez placed and 1400mls removed--now with significant hematuria--s/p 2 units pRBC--on ceftriaxone but no urine culture ordered....will be
unreliable now that pt has been on ABX
REZA with Anion Gap Metabolic Acidosis--due to post renal/obstructive process with urinary retention and stricture--rodriguez placed--creat improving 7.8, 5.1, 1.4, 0.8 (baseline 0.8)--cont rodriguez---hold Bactrim--apprec renal--cont IVF as per
renal--apprec input
MDS/Normocytic Anemia/Thrombocytopenia--now with acute blood loss anemia from hematuria on anemia of chronic disease---transfuse 2 units pRBC--avoid anticoagulants, antiplatelets, etc acutely.
ASCVD-- Stable. History of prior CVAs with no new neurologic deficits - Holding ASA acutely as noted above.
DM-II-- Stable (repaglinide pre-meals)--not on any per med rec?- Update A1C.
DVT Prophylaxis: SCDs
Code Status: Full
Anticipated Discharge: Within 24 hours
Subjective/Interval History
-
Date of Service: November 03, 2024
pt doing well--HGB increased
Objective Data
-
Labs:
Laboratory Results
11/03/24
06:53
WBC 3.1 L
Hgb 8.7 L D
Hct 25.7 L
Plt Count 108 L
Sodium 138
Potassium 3.6
Chloride 108 H
Carbon Dioxide 23
BUN 13
Creatinine 0.8
Glucose 156 H
Calcium 7.8 L
Vital Signs:
max temp for 24 hours
11/02/24
23:25
Temp 99.0 F
Vital Signs
Temp Pulse Resp BP Pulse Ox
98.4 F 68 18 130/64 98
11/03/24 07:22 11/03/24 07:22 11/03/24 07:22 11/03/24 07:22 11/03/24 07:22
I&O
11/02/24 11/03/24 11/04/24
06:59 06:59 06:59
Intake Total 620 / 620
Output Total 3050 / 3050 2130 / 2130
Balance -3050 / -3050 -1510 / -1510
Review of Systems
-
All other systems: Reviewed and negative
Physical Exam
-
General: Well Developed, Well Nourished and No Apparent Distress
HEENT: Normocephalic and Atraumatic
Respiratory: Clear to Auscultation; Negative Wheezes or Rhonchi
Cardiac: Regular Rhythm and S1/S2; Negative Murmur
GI: Soft, Nontender, Nondistended and Normal Bowel Sounds
Genito-urinary: Rodriguez
Musculoskeletal: No Clubbing, No Cyanosis and No Edema
Neuro: Awake
Psych: Calm
--- NOTE | 2024-11-03 11:54 | W.PN.NEPH.PH ---
Today's Communication / Plan
-
follow BMP
Assessment/Plan
-
Assessment
Urinary retention
obstipation
REZA
Azotemia
Metabolic acidosis
Hyponatremia
Anemia/MDS
Plan
can restart enalapril
Follow BMP
Rodriguez per urology
Follow hemoglobin, transfuse as needed
-
-
Date of Service: November 03, 2024
CC / HPI / ROS
-
Chief Complaint:
REZA
History of Present Illness:
REZA/Cr down to 0.8 with rodriguez
acidosis resolved
pancytopenia persists
urine clear
Review of Systems:
no CP/SOB
Labs
-
Labs:
WBC 3.1 10^3/uL (4.8-10.8) L 11/03/24 06:53
RBC 2.89 10^6/uL (4.70-6.10) L 11/03/24 06:53
Hgb 8.7 g/dL (13.0-18.0) L D 11/03/24 06:53
Hct 25.7 % (39.0-52.0) L 11/03/24 06:53
Plt Count 108 10^3/uL (130-400) L 11/03/24 06:53
Sodium 138 mmol/L (135-145) 11/03/24 06:53
Potassium 3.6 mmol/L (3.5-5.1) 11/03/24 06:53
Chloride 108 mmol/L (98-107) H 11/03/24 06:53
Carbon Dioxide 23 mmol/L (22-30) 11/03/24 06:53
BUN 13 mg/dl (9-20) 11/03/24 06:53
Creatinine 0.8 mg/dL (0.7-1.3) 11/03/24 06:53
eGFR > 60.00 11/03/24 06:53
Glucose 156 mg/dl (70-99) H 11/03/24 06:53
Calcium 7.8 mg/dl (8.4-10.2) L 11/03/24 06:53
Albumin 2.8 g/dl (3.5-5.0) L 11/02/24 06:04
Physical Exam
-
Vital Signs:
Vital Signs
Temp Pulse Resp BP Pulse Ox
98.4 F 68 18 130/64 98
11/03/24 07:22 11/03/24 07:22 11/03/24 07:22 11/03/24 07:22 11/03/24 07:22
Cardiovascular:: Regular rate and rhythm
Respiratory:: Bilateral: CTA
Lung Excursion:: Normal
Abdomen:: Nontender and Soft
Bowel Sounds:: Normal
Extremity Edema:: None: Bilateral:
--- NOTE | 2024-11-03 12:00 | CM ---
CM following re: discharge planning.
Reviewed pt's chart, met with pt.
According to pt will be discharged home tomorrow. Pt is aware, expressed his agreement. IMM reviewed, placed on chart, pt has a copy.
PT and OT evaluation noted - home PT/OT recommended. Pt is aware, expressed his agreement. A list of VN vendors provided. Pt preferred [facility]. A referral to [facility] made.
D/C plan: home with [facility] and family support. Spouse to transport at discharge.
[2024-11-03 12:35] LABS: Glucose - Point of Care 299 mg/dl (70-99)
[2024-11-03] MEDS: VASOTEC 10 MG PO (12:35)
[2024-11-03] MEDS: NOVOLOG FLEXPEN-LOW RESISTANCE 3 UNITS SC (12:36)
[2024-11-03 16:00] LABS: Glucose - Point of Care 142 mg/dl (70-99)
[2024-11-03] MEDS: NOVOLOG FLEXPEN-LOW RESISTANCE SC (16:05)
--- NOTE | 2024-11-03 17:51 | W.PN.UPDATE ---
Update Note
Progress Note Update
Cross Coverage Update:
Ordered prn TUMS for indigestion.
[2024-11-03] MEDS: TUMS CHEWABLE TABLET 200 MG PO (18:00)
[2024-11-03 21:16] LABS: Glucose - Point of Care 155 mg/dl (70-99)
[2024-11-03] MEDS: SENOKOT 17.2 MG PO (21:20)
[2024-11-04] VITALS (7 sets, daily range): BP systolic 108–174; BP diastolic 58–73; PULSE 74; O2SAT 99
--- NOTE | 2024-11-04 07:13 | W.PN.HOSP.TC ---
Addendum entered and electronically signed by Cheri Sim MD 11/04/24 15:51:
I saw and evaluated the patient independently. I reviewed the resident�s note and agree with findings and plan as documented by Dr. Zarate.
GENERAL: well developed, well nourished, male in no apparent distress
HEENT: NC/AT
HEART: regular rate and rhythm, +S1, +S2
LUNGS : clear to auscultation bilaterally
ABDOM: soft, nontender, nondistended, + bowel sounds
EXT: no cyanosis, clubbing, or edema
NEUROLOGIC: grossly intact
: rodriguez with blood tinged urine (improved from admission)
Urinary Retention due to Urethral Stricture--had not urinated for 2 weeks--apprec urology, urethra dilated and rodriguez placed and 1400mls removed--significant hematuria improving--s/p 2 units pRBC, HGB stable--on ceftriaxone but no urine culture
ordered....will be unreliable now that pt has been on ABX
REZA with Anion Gap Metabolic Acidosis--due to post renal/obstructive process with urinary retention and stricture--rodriguez placed--creat improving 7.8, 5.1, 1.4, 0.8 (baseline 0.8)--cont rodriguez---hold Bactrim--apprec renal--cont IVF as per
renal--apprec input
MDS/Normocytic Anemia/Thrombocytopenia--now with acute blood loss anemia from hematuria on anemia of chronic disease---transfuse 2 units pRBC--avoid anticoagulants, antiplatelets, etc acutely.
ASCVD-- Stable. History of prior CVAs with no new neurologic deficits - Holding ASA acutely as noted above.
DM-II-- Stable (repaglinide pre-meals)--not on any per med rec?- Update A1C.
hypocalcemia/hypomagnesemia--replete as necessary
DVT Prophylaxis: SCDs
Code Status: Full
Patient and family concerned about bleeding from penis around the Rodriguez catheter. Explained that I spoke with urology over the weekend and stated that this is expected. We cannot place a larger catheter than what is already in. Hemoglobin stable.
Did reach out to urology this morning who confirmed the above discussion. Family did not seem satisfied with that answer.
Original Note:
Today's Communication/Plan
-
Continue Rodriguez
Hold ASA
Restarted Repaglinide
Assessment / Plan
Assessment / Plan
Impression: Patient is an 84y M with PMH significant for hypertension, remote CVA and h/o urinary retention who presented to ED complaining of inability to urinate.
Assessment/Plan:
#Urinary Retention due to Urethral Stricture
-Urethra dilated and rodriugez placed and 1400mls removed in ED, significant hematuria--s/p 2 units pRBC
-Stable H&Hs
-Urology consulted, appreciated
-Continue rodriguez
-Hold ASA for now due to continued hematuria
-Discontinue IV ceftriaxone
-Follow up with outpatient
#REZA with Anion Gap Metabolic Acidosis
-Due to post renal/obstructive process with urinary retention and stricture--rodriguez placed
-creat improving --> 7.8, 5.1, 1.4, 0.8 0.7 (baseline 0.8)
-Nephrology consulted, appreciated
-Discontinued IVF
-cont rodriguez as per urology
#MDS/Normocytic Anemia/Thrombocytopenia
-Now with acute blood loss anemia from hematuria on anemia of chronic disease
-S/p 2 units pRBC--avoid anticoagulants, antiplatelets, etc acutely.
-Stable H&Hs now
#ASCVD
-Stable. History of prior CVAs with no new neurologic deficits - Holding ASA acutely as noted above.
#DM-II
-Stable (repaglinide pre-meals at home)
-Restarted repaglinide
-A1c 7.8
DVT Prophylaxis: SCDs
Code Status: Full
Anticipated Discharge: 24 - 48 hours
Subjective/Interval History
-
Date of Service: November 04, 2024
Patient denies any fever or chills, continues to have bloody urine output.
Objective Data
-
Labs:
Laboratory Results
11/04/24
06:00
WBC Pending
Hgb Pending
Hct Pending
Plt Count Pending
Sodium Pending
Potassium Pending
Chloride Pending
Carbon Dioxide Pending
BUN Pending
Creatinine Pending
Glucose Pending
Calcium Pending
Vital Signs:
Vital Signs
Temp Pulse Resp BP Pulse Ox
98.7 F 68 18 146/58 95
11/04/24 03:33 11/04/24 03:33 11/04/24 03:33 11/04/24 03:33 11/04/24 03:33
I&O
11/03/24 11/04/24 11/05/24
06:59 06:59 06:59
Intake Total 620 / 620 1260 / 1260
Output Total 2130 / 2130 1650 / 1650
Balance -1510 / -1510 -390 / -390
Review of Systems
-
All other systems: Reviewed and negative
Physical Exam
-
General: No Apparent Distress
HEENT: Normocephalic
Respiratory: Clear to Auscultation
Cardiac: Regular Rhythm and S1/S2
GI: Soft, Nontender and Nondistended
Genito-urinary: Bloody Urine and Rodriguez
Musculoskeletal: No Edema
Skin: Warm and Dry
Neuro: Awake, Alert and Oriented
Psych: Calm
[2024-11-04 07:57] LABS: Glucose - Point of Care 138 mg/dl (70-99)
[2024-11-04 09:38] LABS: Hematocrit 25.2 % (39.0-52.0); Hemoglobin 8.7 g/dL (13.0-18.0); Mean Corp Hgb Conc. 34.5 g/dL (33.0-37.0); Mean Corpuscular Hgb 30.6 pg (27.0-31.0); Mean Corpuscular Volume 88.7 fL (80.0-94.0); Platelet Count 107 10^3/uL (130-400); Red Blood Cell Count 2.84 10^6/uL (4.70-6.10); Red Cell Dist. Width 15.3 % (11.5-14.5); White Blood Cell Count 2.9 10^3/uL (4.8-10.8)
[2024-11-04] MEDS: PROSCAR 5 MG PO (09:40)
[2024-11-04] MEDS: NOVOLOG FLEXPEN-LOW RESISTANCE SC (09:40)
[2024-11-04] MEDS: VASOTEC 10 MG PO (09:41)
[2024-11-04] MEDS: LOPRESSOR 50 MG PO ×2 (09:42→20:29)
[2024-11-04 10:34] LABS: Blood Urea Nitrogen 7 mg/dl (9-20); Calcium 7.7 mg/dl (8.4-10.2); Carbon Dioxide 23 mmol/L (22-30); Chloride 103 mmol/L (98-107); Estimated Creatinine Clearance 58 ml/min; Glucose 126 mg/dl (70-99); Potassium 3.6 mmol/L (3.5-5.1); Sodium 134 mmol/L (135-145); eGFR > 60.00
[2024-11-04 10:39] LABS: Magnesium 1.1 mg/dl (1.6-2.3)
[2024-11-04] MEDS: MAGNESIUM SULFATE 50 IV (11:18)
--- NOTE | 2024-11-04 11:24 | W.PN.NEPH.PH ---
Today's Communication / Plan
-
Kidney function numbers stable
Assessment/Plan
-
Assessment
Urinary retention
obstipation
REZA
Azotemia
Metabolic acidosis
Hyponatremia
Anemia/MDS
Plan
Enalapril is back
Sodium at 134
Follow BMP
Mckinley per urology
Follow hemoglobin, transfuse as needed
Creatinine normal at 0.7
-
-
Date of Service: November 04, 2024
CC / HPI / ROS
-
Chief Complaint:
REZA
History of Present Illness:
REZA/Cr down to 0.7
acidosis resolved
pancytopenia persists
urine clear
Review of Systems:
no CP/SOB
Nonoliguric
Labs
-
Labs:
WBC 2.9 10^3/uL (4.8-10.8) L 11/04/24 08:34
RBC 2.84 10^6/uL (4.70-6.10) L 11/04/24 08:34
Hgb 8.7 g/dL (13.0-18.0) L 11/04/24 08:34
Hct 25.2 % (39.0-52.0) L 11/04/24 08:34
Plt Count 107 10^3/uL (130-400) L 11/04/24 08:34
Sodium 134 mmol/L (135-145) L 11/04/24 08:34
Potassium 3.6 mmol/L (3.5-5.1) 11/04/24 08:34
Chloride 103 mmol/L (98-107) 11/04/24 08:34
Carbon Dioxide 23 mmol/L (22-30) 11/04/24 08:34
BUN 7 mg/dl (9-20) L 11/04/24 08:34
Creatinine 0.7 mg/dL (0.7-1.3) 11/04/24 08:34
eGFR > 60.00 11/04/24 08:34
Glucose 126 mg/dl (70-99) H 11/04/24 08:34
Calcium 7.7 mg/dl (8.4-10.2) L 11/04/24 08:34
Albumin 2.8 g/dl (3.5-5.0) L 11/02/24 06:04
Physical Exam
-
Vital Signs:
Vital Signs
Temp Pulse Resp BP Pulse Ox
99 F 66 18 136/62 100
11/04/24 07:27 11/04/24 07:27 11/04/24 07:27 11/04/24 07:27 11/04/24 07:27
--- NOTE | 2024-11-04 11:54 | W.PN.URO.CBU ---
Addendum entered and electronically signed by Nicola Pryor MD 11/04/24 12:38:
Hematuria improved from initial onset after catheter placement.
H/H stable >24 hrs s/p 2u PRBC transfusion.
Maintain Mckinley catheter
Tentatively continue holding ASA
D/w Hospital Medicine
Original Note:
Today's Communication / Plan
-
H/H stable - no evidence of active bleeding
Maintain Mckinley catheter on discharge
OK to resume ASA tomorrow (11/05)
F/U w/ Dr. Sherwood as outpatient for voiding trial
Assessment / Plan
-
ARF - resolved
Acute urinary retention - s/p dilation of stricture and catheter placement
Hematuria - resolved
Acute blood loss anemia (from urethral dilation, BPH, and decompression hematuria)
Dense urethral stricture - s/p dilation of stricture and catheter placement
Large volume BPH
10/31: s/p urethral dilation and complicated catheter placement
Urine clear w/o clots
Mckinley catheter draining well w/o clot obstruction.
ASA held
H/H stable s/p 2u 11/02
Cr normalized
Diagnosis
-
Date of Service: November 04, 2024
-
Patient Diagnosis:
ARF
Acute urinary retention
Hematuria
Dense urethral stricture
Large volume BPH
10/31: s/p urethral dilation and complicated catheter placement
Subjective
-
Mckinley draining clear urine w/o clots.
Denies significant bother from catheter.
Objective
-
Vital Signs
Temp Pulse Resp BP Pulse Ox
99 F 72 18 108/72 98
11/04/24 11:40 11/04/24 11:40 11/04/24 11:40 11/04/24 11:40 11/04/24 11:40
Intake and Output
11/03/24 11/04/24 11/05/24
06:59 06:59 06:59
Intake Total 620 / 620 1260 / 1260
Output Total 2129 / 0 1649 / 1650
Balance -1510 / -1510 -390 / -390
Intake:
Oral fluids 120 / 120 1260 / 1260
Blood Product Amount Infused ( 500 / 500
mL)
Packed Rbc Leukoreduced Unit 500 / 500
[id number]
Output:
Urine, Mckinley 2129 / 2129 1649 / 165
Laboratory Results
11/04/24 08:34
11/04/24 08:34
Physical Exam
-
General - well developed, well nourished, no acute distress
Abdomen - soft, non-tender, non-distended
- 16Fr catheter w/o active bleeding or clots in tubing
Skin - warm & dry with no rash
Extremities - no clubbing, no cyanosis, no edema
[2024-11-04 12:08] LABS: Glucose - Point of Care 321 mg/dl (70-99)
[2024-11-04] MEDS: NOVOLOG FLEXPEN-LOW RESISTANCE 4 UNITS SC (12:09)
--- NOTE | 2024-11-04 15:33 | CM ---
Patient seen at bedside with physician. Patient family member expressed concerns about rodriguez. Patient to be followed by [facility] at discharge. Urology to talk to family. CM will continue to follow for discharge planning needs.
Plan; home with [facility] to follow
[2024-11-04 16:18] LABS: Glucose - Point of Care 213 mg/dl (70-99)
--- NOTE | 2024-11-04 17:30 | PTCARENOTE ---
Pt having decreased output in catheter bag. Catheter bag emptied over 2 hours ago for 400ml and theres been no urine in the bag since just flecks of blood coming through the tubing and some bleeding from his penis. Pt bladder scanned and result of
377ml. Pt has No c/o pain or spasms. Reached out to urology, Dr Pryor, order to hand irrigate. Pt hand irrigated for multiple small clots, pt tolerated well no c/o pain urine now flowing freely, 500ml drained after irrigation complete. Urine
continues to be bloody, Urology made Aware, pt made Npo after midnight incase surgical intervention is needed. Family updated at bedside and over the phone, Pt comfortable, Plan of care continues.
[2024-11-04] MEDS: NOVOLOG FLEXPEN-LOW RESISTANCE 2 UNITS SC (18:18)
[2024-11-04] MEDS: PRANDIN 1 MG PO (18:19)
--- NOTE | 2024-11-04 20:13 | W.PN.UPDATE ---
Update Note
Progress Note Update
Mckinley catheter draining blood-tinged urine through afternoon w/o clots.
H/H stable x48 hrs - lysing old clot w/ dark aqeous hematuria noted over weekend.
1710: notified by RN via TT - no drainage per tubing w/ pawan-catheter oozing and bloody drainage.
Verbal orders given for PRN hand irrigation w/ 60 cc sterile solution q4-6 hrs.
- NPO status in case cystoscopic intervention is required tomorrow
- Hand irrigate w/ 60 cc NSS (or sterile water) q4-6 hrs prn sluggish drainage or clots
- Continue holding ASA
- Trend H/H on AM labs
D/w RN.
[2024-11-04] MEDS: SENOKOT 17.2 MG PO (20:29)
[2024-11-04] MEDS: ROCEPHIN 1000 MG IV (23:30)
[2024-11-04] MEDS: STERILE WATER FOR INJECTION 10 ML IV (23:32)
[2024-11-05 03:25] VITALS: BP 128/51
[2024-11-05 05:24] LABS: Glucose - Point of Care 99 mg/dl (70-99)
--- NOTE | 2024-11-05 07:15 | W.PN.HOSP.TC ---
Addendum entered and electronically signed by Cheri Sim MD 11/05/24 16:56:
I saw and evaluated the patient independently. I reviewed the resident�s note and agree with findings and plan as documented by Dr. Zarate.
GENERAL: well developed, well nourished, male in no apparent distress
HEENT: NC/AT
HEART: regular rate and rhythm, +S1, +S2
LUNGS : clear to auscultation bilaterally
ABDOM: soft, nontender, nondistended, + bowel sounds
EXT: no cyanosis, clubbing, or edema
NEUROLOGIC: grossly intact
: rodriguez with blood tinged urine (improved from admission)
Urinary Retention due to Urethral Stricture/BPH--had not urinated for 2 weeks which prompted admission--apprec urology, urethra dilated and rodriguez placed and 1400mls removed--significant hematuria improving--s/p 2 units pRBC, HGB stable--can stop
ceftriaxone--urologic plan has changed multiple times over the last 24 to 48 hours--spoke with urology on 11/04/2024 who stated that nothing further needed to be done and patient could go home--then, patient had decreased urine output and needed
Rodriguez catheter hand irrigated, so urology recommended n.p.o. after midnight for possible procedure on 11/05/2024--then, different urologist came in this morning and stated nothing needs to be done and patient could go home, but called me later to
discuss placing the patient on the OR schedule for as the second case to upsize the Rodriguez catheter prior to definitive prostate management--we did offer the patient the opportunity of staying until to have this done as an inpatient
in the operating room under anesthesia but the patient declined and wished to go home--patient should follow-up with urology as an outpatient
REZA with Anion Gap Metabolic Acidosis--due to post renal/obstructive process with urinary retention and stricture--rodriguez placed--creat improving and now at baseline 7.8, 5.1, 1.4, 0.8 (baseline 0.8)--cont rodriguez---hold Bactrim/asa--apprec renal
MDS/Normocytic Anemia/Thrombocytopenia--now with acute blood loss anemia from hematuria on anemia of chronic disease---transfused 2 units pRBC--avoid anticoagulants, antiplatelets, etc acutely--HGB 9 on 11/05/24, day of discharge
ASCVD-- Stable. History of prior CVAs with no new neurologic deficits - Holding ASA acutely as noted above.
DM-II-- Stable (repaglinide pre-meals)-- HGB A1C = 7.8
hypocalcemia/hypomagnesemia--replete as necessary
DVT Prophylaxis: SCDs
Code Status: Full
pt elects to go home
Original Note:
Today's Communication/Plan
-
Discharged today
Urology follow-up outpatient
Assessment / Plan
Assessment / Plan
Impression: Patient is an 84y M with PMH significant for hypertension, remote CVA and h/o urinary retention who presented to ED complaining of inability to urinate.
Assessment/Plan:
#Urinary Retention due to Urethral Stricture
-Urethra dilated and rodriguez placed and 1400mls removed in ED, significant hematuria--s/p 2 units pRBC
-Stable H&Hs
-Urology consulted, appreciated
-Continue rodriguez
-Hold ASA for now due to continued hematuria
-Discontinued IV ceftriaxone
-Follow up with outpatient
-Urology recommended cystoscopy dilatation for larger Rodriguez procedure for tomorrow but patient declined after discussion and wished continue with his discharge from hospital. Recommended that he follow-up with urology in a week for his further care.
#REZA with Anion Gap Metabolic Acidosis
-Due to post renal/obstructive process with urinary retention and stricture--rodriguez placed
-creat improving --> 7.8, 5.1, 1.4, 0.8 0.7 (baseline 0.8)
-Nephrology consulted, appreciated
-Discontinued IVF
-cont rodriguez as per urology
#MDS/Normocytic Anemia/Thrombocytopenia
-Now with acute blood loss anemia from hematuria on anemia of chronic disease
-S/p 2 units pRBC--avoid anticoagulants, antiplatelets, etc acutely.
-Stable H&Hs now
#ASCVD
-Stable. History of prior CVAs with no new neurologic deficits - Holding ASA acutely as noted above.
#DM-II
-Stable (repaglinide pre-meals at home)
-Continue repaglinide
-A1c 7.8
DVT Prophylaxis: SCDs
Code Status: Full
Anticipated Discharge: Within 24 hours
Subjective/Interval History
-
Date of Service: November 05, 2024
Patient denies any fever chills or vomiting.
Objective Data
-
Labs:
Laboratory Results
11/05/24
06:44
WBC Pending
Hgb Pending
Hct Pending
Plt Count Pending
Sodium Pending
Potassium Pending
Chloride Pending
Carbon Dioxide Pending
BUN Pending
Creatinine Pending
Glucose Pending
Calcium Pending
Vital Signs:
Vital Signs
Temp Pulse Resp BP Pulse Ox
98.5 F 62 18 128/51 98
11/05/24 03:25 11/05/24 03:25 11/05/24 03:25 11/05/24 03:25 11/05/24 03:25
I&O
11/04/24 11/05/24 11/06/24
06:59 06:59 06:59
Intake Total 1260 / 1260 960 / 960
Output Total 1650 / 1650 1500 / 1500
Balance -390 / -390 -540 / -540
Review of Systems
-
All other systems: Reviewed and negative
Physical Exam
-
General: No Apparent Distress
HEENT: Normocephalic
Respiratory: Clear to Auscultation
Cardiac: Regular Rhythm and S1/S2
GI: Soft, Nontender and Nondistended
Genito-urinary: Rodriguez (Bloody urine output)
Musculoskeletal: No Edema
Skin: Warm and Dry
Neuro: Awake, Alert and Oriented
Psych: Calm
[2024-11-05 07:20] VITALS: BP 143/60
[2024-11-05 07:21] LABS: Glucose - Point of Care 110 mg/dl (70-99)
--- NOTE | 2024-11-05 08:09 | W.PN.URO.CBU ---
Today's Communication / Plan
-
no plans for op room as of now home when stable
Assessment / Plan
-
ARF - resolved
Acute urinary retention - s/p dilation of stricture and catheter placement
Hematuria - resolved
Acute blood loss anemia (from urethral dilation, BPH, and decompression hematuria)
Dense urethral stricture - s/p dilation of stricture and catheter placement
Large volume BPH
10/31: s/p urethral dilation and complicated catheter placement
Urine clear w/o clots
Mckinley catheter draining well w/o clot obstruction.
ASA held
H/H stable s/p 2u 11/02
Cr normalized
Diagnosis
-
Date of Service: November 05, 2024
-
Patient Diagnosis:
Post Op Day:
Patient Diagnosis:
ARF
Acute urinary retention
Hematuria
Dense urethral stricture
Large volume BPH
10/31: s/p urethral dilation and complicated catheter placement
Subjective
-
feels well
Objective
-
Vital Signs
Temp Pulse Resp BP Pulse Ox
98.5 F 62 18 128/51 98
11/05/24 03:25 11/05/24 03:25 11/05/24 03:25 11/05/24 03:25 11/05/24 03:25
Intake and Output
11/04/24 11/05/24 11/06/24
06:59 06:59 06:59
Intake Total 1260 / 1260 960 / 960
Output Total 1650 / 1650 1500 / 1500
Balance -390 / -390 -540 / -540
Intake:
Oral fluids 1260 / 1260 960 / 960
Output:
Urine, Mckinley 1650 / 1650 1500 / 1500
Review of Systems
-
: Difficulty Voiding and Bleeding
Physical Exam
-
General - well developed, well nourished, no acute distress
Chest - clear bilaterally
Abdomen - soft, non-tender, positive bowel sounds, no CVAT, no incisional pain or distention
Genitalia - normal
Rectal - normal
Skin - warm & dry with no rash
Neuro - AOx3, no motor deficits
Extremities - no clubbing, no cyanosis, no edema
Incision - clean, dry
Dressing - clean, dry, intact
Care Review
Data Reviewed
Discussed with: Hospitalist
CT Scan: Image Pers Reviewed
[2024-11-05] MEDS: PROSCAR 5 MG PO (08:40)
[2024-11-05] MEDS: PRANDIN 1 MG PO ×2 (08:40→12:01)
[2024-11-05] MEDS: LOPRESSOR 50 MG PO (08:40)
[2024-11-05] MEDS: VASOTEC 10 MG PO (08:40)
[2024-11-05 09:53] LABS: Hematocrit 27.3 % (39.0-52.0); Mean Corpuscular Hgb 29.7 pg (27.0-31.0); Mean Corpuscular Volume 90.1 fL (80.0-94.0); Mean Platelet Volume 10.7 fL (7.4-10.4); Platelet Count 119 10^3/uL (130-400); Red Blood Cell Count 3.03 10^6/uL (4.70-6.10); Red Cell Dist. Width 15.3 % (11.5-14.5); White Blood Cell Count 2.9 10^3/uL (4.8-10.8)
[2024-11-05 10:24] LABS: Blood Urea Nitrogen 8 mg/dl (9-20); Calcium 7.7 mg/dl (8.4-10.2); Carbon Dioxide 25 mmol/L (22-30); Chloride 104 mmol/L (98-107); Estimated Creatinine Clearance 58 ml/min; Glucose 97 mg/dl (70-99); Potassium 3.9 mmol/L (3.5-5.1); Sodium 135 mmol/L (135-145); eGFR > 60.00
[2024-11-05 11:08] VITALS: BP 158/87
--- NOTE | 2024-11-05 11:20 | W.PN.NEPH.PH ---
Today's Communication / Plan
-
Signed off
Assessment/Plan
-
Assessment
Urinary retention
obstipation
REZA
Azotemia
Metabolic acidosis
Hyponatremia
Anemia/MDS
Plan
Enalapril is back
Sodium normalized creatinine within normal limits
Follow BMP
Mckinley per urology
Follow hemoglobin, transfuse as needed
Creatinine normal at 0.7
I will sign off please call if needed again
-
-
Date of Service: November 05, 2024
CC / HPI / ROS
-
Chief Complaint:
REZA
History of Present Illness:
REZA/Cr down to 0.7
acidosis resolved
pancytopenia persists
urine clear
Review of Systems:
no CP/SOB
Nonoliguric
Labs
-
Labs:
WBC 2.9 10^3/uL (4.8-10.8) L 11/05/24 06:44
RBC 3.03 10^6/uL (4.70-6.10) L 11/05/24 06:44
Hgb 9.0 g/dL (13.0-18.0) L 11/05/24 06:44
Hct 27.3 % (39.0-52.0) L 11/05/24 06:44
Plt Count 119 10^3/uL (130-400) L 11/05/24 06:44
Sodium 135 mmol/L (135-145) 11/05/24 06:44
Potassium 3.9 mmol/L (3.5-5.1) 11/05/24 06:44
Chloride 104 mmol/L (98-107) 11/05/24 06:44
Carbon Dioxide 25 mmol/L (22-30) 11/05/24 06:44
BUN 8 mg/dl (9-20) L 11/05/24 06:44
Creatinine 0.7 mg/dL (0.7-1.3) 11/05/24 06:44
eGFR > 60.00 11/05/24 06:44
Glucose 97 mg/dl (70-99) 11/05/24 06:44
Calcium 7.7 mg/dl (8.4-10.2) L 11/05/24 06:44
Albumin 2.8 g/dl (3.5-5.0) L 11/02/24 06:04
Physical Exam
-
Vital Signs:
Vital Signs
Temp Pulse Resp BP Pulse Ox
98.2 F 65 18 158/87 98
11/05/24 11:08 11/05/24 11:08 11/05/24 11:08 11/05/24 11:08 11/05/24 11:08
Respiratory:: Bilateral: CTA
Lung Excursion:: Normal
Abdomen:: Soft
Bowel Sounds:: Normal
Extremity Edema:: None: Bilateral:
[2024-11-05 11:57] LABS: Glucose - Point of Care 228 mg/dl (70-99)
[2024-11-05] MEDS: NOVOLOG FLEXPEN-LOW RESISTANCE 2 UNITS SC (12:01)
[2024-11-05 12:03] LABS: % Basophils 0.3 % (0-2); % Eosinophils 0.7 % (0-6); % Lymphocytes 42.1 % (20.5-51.1); % Monocytes 19.7 % (1.7-9.3); % Neutrophils 36.2 % (42.2-75.2); Absolute Lymphocytes 1.2 10^3/uL (1.2-3.4); Absolute Monocytes 0.6 10^3/uL (0.1-0.6); Absolute Neutrophils 1.1 10^3/uL (1.4-6.5); Nucleated Red Blood Cells % 0 % (-)
[2024-11-05 14:19] VITALS: BP 157/74
--- NOTE | 2024-11-05 14:35 | PTCARENOTE ---
Reviewed discharge instructions with patient and . Reviewed and demonstrated how to switch over Mckinley bag to leg bag. Both can verbalize and demonstrate. IV removed. [facility] nursing to call patient to arrange a visit to home tomorrow.
--- NOTE | 2024-11-05 14:58 | W.PN.URO.CBU ---
Today's Communication / Plan
-
NPO WED FOR MONDAY AM PROCEDURE
Assessment / Plan
-
ARF - resolved
Acute urinary retention - s/p dilation of stricture and catheter placement
Hematuria - resolved
Acute blood loss anemia (from urethral dilation, BPH, and decompression hematuria)
Dense urethral stricture - s/p dilation of stricture and catheter placement
Large volume BPH
10/31: s/p urethral dilation and complicated catheter placement
Urine clear w/o clots
Mckinley catheter draining well w/o clot obstruction. but NNEDS CYSTO DILARIOMN TO OPEN A LARGER URETHRAL OLUMEN FOR FUTURE TREATMENT ODF MASSIVE BPH
ASA held
H/H stable s/p 2u 11/02
Cr normalized
Diagnosis
-
Date of Service: November 05, 2024
-
Patient Diagnosis:
Post Op Day:
Patient Diagnosis:
Post Op Day:
Patient Diagnosis:
ARF
Acute urinary retention
Hematuria
Dense urethral stricture
Large volume BPH
10/31: s/p urethral dilation and complicated catheter placement
Subjective
-
massive prostate some hematuria a stable hgb vital signs but has smal caliber folcyndi and stfransisco morales, proceed thwui cysto underanestheis
Objective
-
Vital Signs
Temp Pulse Resp BP Pulse Ox
97.8 F 69 18 157/74 97
11/05/24 14:19 11/05/24 14:19 11/05/24 14:19 11/05/24 14:19 11/05/24 14:19
Intake and Output
11/04/24 11/05/24 11/06/24
06:59 06:59 06:59
Intake Total 1260 / 1260 960 / 960
Output Total 1650 / 1650 1500 / 1500
Balance -390 / -390 -540 / -540
Intake:
Oral fluids 1260 / 1260 960 / 960
Output:
Urine, Mckinley 1649 1500 / 1500
Laboratory Results
11/05/24 06:44
11/05/24 06:44
Review of Systems
-
: Difficulty Voiding and Bleeding
Physical Exam
-
General - well developed, well nourished, no acute distress
Chest - clear bilaterally
Abdomen - soft, non-tender, positive bowel sounds, no CVAT, no incisional pain or distention
Genitalia - normal
Rectal - normal
Skin - warm & dry with no rash
Neuro - AOx3, no motor deficits
Extremities - no clubbing, no cyanosis, no edema
Incision - clean, dry
Dressing - clean, dry, intact
Care Review
Data Reviewed
Discussed with: Hospitalist and Nursing
--- NOTE | 2024-11-05 16:28 | W.DCSUMMARY ---
Addendum entered and electronically signed by Cheri Sim MD 11/05/24 19:04:
Read, reviewed, and agree. See same day progress note for additional details. Time spent coordinating care, DC planning, review of DC plan of care with resident, transition of care, review of records in EMR, med rec, consults, notes, d/w
consultants, nursing, family, and CM = 37 minutes
Original Note:
Discharge Summary
Discharge Data
Date of Admission: 11/01/24
Date of Discharge: 11/05/24
-
Pending Results: No
Hospital Course
Discharging Physician : ,
Disposition : Home
Primary care physician : Richie Coronado MD
Principal Discharge diagnosis : Urinary retention due to urethral stricture, hematuria, acute kidney injury with anion gap metabolic acidosis
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
Hospital Course : Patient is a 84-year-old male patient with past medical history significant for hypertension, remote CVA and history of urinary retention who presented to the ED complaining of inability to urinate for 2 weeks. Patient was seen by
urology in the ED for difficult Mckinley placement secondary to retention likely due to BPH and urethral stricture with removal of 1400mls after urethral dilatation. His aspirin was held due to significant hematuria along with monitoring H&H, patient
was transfused 2 units of PRBC for acute blood loss anemia/hematuria. H&H stabilized. IV ceftriaxone was initiated due to urinary retention/Mckinley placement. Nephrology was consulted due to REZA due to urinary retention. Finasteride was started
for his BPH and Mckinley was continued with improvement in REZA. MARC inhibitor was restarted after improvement with REZA. Patient continued to have bloody through Mckinley and was scheduled for another cystoscopy dilatation with larger Mckinley placement but
patient declined procedure after discussions about his care and was intent on being discharged. Patient was advised to follow-up with urology outpatient in a week for further care (hold aspirin until follow-up with urology) and was discharged.
Important imaging findings :
10/31/2024 abdomen/pelvis CT:
1). The prostate is markedly enlarged measuring 8 cm diameter
2). There is moderate bilateral hydronephrosis and hydroureter presumably secondary to chronic partial bladder outlet obstruction
3). There are bilateral renal cysts measuring up to 4 to centimeters.
4). There is 7 mm nonobstructing left-sided renal calculus
5). There are bilateral inguinal hernias which do not contain bowel.
6). There is 4.1 cm fusiform infrarenal abdominal aortic aneurysm.
7). There is multilevel lumbar degenerative disc disease
Discharge Plan
-
Patient Disposition: Home with Home Care
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
type 2 diabetes mellitus
Condition: Good
Diet: Diabetic, Carb Controlled
Activity: As tolerated
Driving Restrictions: As prior to admission
Bathing Restrictions: None
Blood Work: CBC to be done in one week
Activity Restrictions/Additional Instructions:
Mckinley catheter to be kept at discharge
Referrals:
Richie Coronado MD [Family Provider] - in less than 1 week
Lauri Sherwood MD [Active] - in less than 1 week (call Dr Sherwood [phone] to schedule hospital follow up within a week)
Mukund Holden MD [Active] -
Additional Discharge Medication Instructions: If experiencing any symptoms such as inability to void, worsening bloody urine or high-grade fevers please return to the ER. Hold aspirin until follow up with Urology. Follow-up with urology Dr. Sherwood
and family doctor within a week.
Prescriptions:
New
finasteride 5 mg Tablet
5 mg PO DAILY 30 Days Qty: 30 0RF
repaglinide 1 mg Tablet
1 mg PO ACHSPRN PRN (Reason: Do not need to take at night) 30 Days Qty: 30 0RF
Continued
enalapril maleate 10 mg Tablet
10 mg PO DAILY Qty: 0 0RF
fexofenadine 180 mg Tablet
180 mg PO BID Qty: 0 0RF
amlodipine 5 mg Tablet
5 mg PO DAILY Qty: 0 0RF
simvastatin 20 mg Tablet
20 mg PO HS Qty: 0 0RF
metoprolol tartrate 50 mg Tablet
50 mg PO BID Qty: 0 0RF
Held
aspirin 81 mg Tablet,Chewable
81 mg PO DAILY
Hold Instructions: Hold aspirin until seen by Urology
Discharge Orders:
Discharge Patient (As Directed); Ordered 11/05/24
Ordered By: Greer Zarate
Discharge Date and Time
Print Language: BAHRAINI
--- NOTE | 2024-11-05 16:38 | PTCARENOTE ---
Reviewed discharge instructions with patient, and daughter. Stressed the importance of the follow up with the urologist. All verbalize understanding. Reviewed if fever or no urine in Mckinley bag to call MD. Patient demonstrated ability to empty
Mckinley bag. Patient to have [facility] nurses at home. Patient left via wheelchair with daughter and .
--- NOTE | 2024-11-06 13:41 | W.PN.UPDATE ---
Update Note
Progress Note Update
Family of patient had questions about medications that patient was discharged with. I called today and spoke to Cheri Allison who is listed as primary contact/daughter. We discussed initially about Repaglinide- it was not in home medications
initially on admission, according to prior charts it was listed as 1mg (instead of home dose as 0.5mg as per family) and therefore Repaglinide 1mg was administered during stay. I explained that I had not known patient had this medication at home
already and had sent a script of Repaglinide out of caution to make sure he was able to receive medication at home.
We also discussed the confusion around Tamsulosin/Finasteride as family was told that patient was receiving both. I explained that Finasteride was started by Urology and continued during his stay along and Tamsulosin was never administered during
this admission. Therefore, I had stated that only Finasteride was sent to the pharmacy.
Family member seemed to understand what we had discussed and was pleasant throughout call.
== END 2024-11-05 17:15 | disposition home health service (06) | DRG 683 ==
LOC: 4 EAST ACU 01:12
PROVIDERS: Emergency Medicine; Specialist; Student in an Organized Health Care Education/Training Program; ADMITTING PHYSICIAN Hospitalist; ATTENDING PHYSICIAN Internal Medicine; CONSULT PHYSICIAN Internal Medicine Nephrology; CONSULT PHYSICIAN Specialist; EMERGENCY PHYSICIAN Student in an Organized Health Care Education/Training Program; FAMILY PHYSICIAN Family Medicine
PROC: 0T7D7ZZ Dilation of Urethra, Via Natural or Artificial Opening (ICD-10-PCS; 2024-11-01)
PROC: 0T9B70Z Drainage of Bladder with Drainage Device, Via Natural or Artificial Opening (ICD-10-PCS; 2024-11-01)
PROC: 30233N1 Transfusion of Nonautologous Red Blood Cells into Peripheral Vein, Percutaneous Approach (ICD-10-PCS; 2024-11-02)
DX: N17.8 Other acute kidney failure (principal); D62 Acute posthemorrhagic anemia; E87.1 Hypo-osmolality and hyponatremia; E87.20 Acidosis, unspecified; N35.819 Other urethral stricture, male, unspecified site; N40.1 Benign prostatic hyperplasia with lower urinary tract symptoms; R33.8 Other retention of urine; N13.6 Pyonephrosis; D46.9 Myelodysplastic syndrome, unspecified; D69.6 Thrombocytopenia, unspecified; I25.10 Atherosclerotic heart disease of native coronary artery without angina pectoris; E11.9 Type 2 diabetes mellitus without complications; I10 Essential (primary) hypertension; N32.0 Bladder-neck obstruction; N28.1 Cyst of kidney, acquired; N20.0 Calculus of kidney; K40.20 Bilateral inguinal hernia, without obstruction or gangrene, not specified as recurrent; I71.43 Infrarenal abdominal aortic aneurysm, without rupture; Z86.73 Personal history of transient ischemic attack (TIA), and cerebral infarction without residual deficits; Z79.82 Long term (current) use of aspirin; Z79.899 Other long term (current) drug therapy
CPT/HCPCS: 74176; 80048; 80053; 81003; 81015; 82962; 83036; 83605; 83735; 84443; 85025; 85027; 86850; 86870; 86900; 86901; 86902; 86905; 86920; 86922; 96374; 96375; 97116; 97162; 97166; 99285; P9016